=== PATIENT | female | born 1975 | race Caucasian/White ===

== ENCOUNTER 2016-07-12 10:28 | Emergency (ER) | payer OTHER ==
[2016-07-12 10:35] VITALS: RESP 18
--- NOTE | 2016-07-12 10:53 | EDPHY ---
H & P Time Seen by Provider: 07/12/16 10:50 HPI/ROS: CHIEF COMPLAINT: Bright red blood in stool. HISTORY OF PRESENT ILLNESS: The patient is a 41-year-old female with a history of IBS who presents because she had a bowel movement this morning that had bright red blood in it. She had a normal blood-free bowel movement when she first woke up. 45 minutes later she felt abdominal cramping and had an episode normal stool and blood in the toilet. She has a history of similar symptoms in 2012 and had a normal colonoscopy at that time. She was advised to stop running at that time. Since then she intermittently notices small amounts of blood on the toilet paper but never as much as today. REVIEW OF SYSTEMS: A complete 10-point review of systems was performed and is negative except for those items mentioned in the HPI. Past Medical/Surgical History: IBS. Social History: . Smoking Status: Never smoked Physical Exam: General Appearance: Alert, no distress Eyes: Pupils equal and round, no conjunctival pallor or injection ENT, Mouth: Mucous membranes moist Neck: Normal inspection Respiratory: Lungs are clear to auscultation Cardiovascular: Regular rate and rhythm Gastrointestinal: Abdomen is soft and non-tender Rectal: Anal fissure with no active bleeding. Stool is brown and mixed with BRB. Neurological: A&O, nonfocal, normal gait Skin: Warm and dry, no rash Extremities: Nontender, no pedal edema Psychiatric: Mood and affect normal Constitutional: Initial Vital Signs Temperature (C) 36.4 C 07/12/16 10:33 Heart Rate 86 07/12/16 10:33 Respiratory Rate 18 07/12/16 10:33 Blood Pressure 140/83 H 07/12/16 10:33 O2 Sat (%) 97 07/12/16 10:33 O2 Delivery Mode Room Air Allergies/Adverse Reactions: Penicillins Allergy (Verified 07/12/16 10:32) Home Medications: Medication Instructions Recorded Prozac 10 MG (*) 07/12/16 Zyrtec 07/12/16 Medical Decision Making ED Course/Re-evaluation: An IV was established and basic labs ordered. Stool sent to lab for screening and returned negative for blood. The red discoloration of her stool is possibly secondary to recent ingestion of beats. Fortunately there is no evidence of GI bleed. 1125: Reassessed patient. Discussed stool screen results with the patient. She is safe and stable for discharge. She has multiple ongoing GI issues and will follow up with GI. Differential Diagnosis: Differential diagnosis includes does not limited to hemorrhoids, lower GI bleed , severe anemia. - Data Points Laboratory Results: Laboratory Results 07/12/16 11:25 Departure - Departure Disposition: Home, Routine, Self-Care Clinical Impression: Red stool Condition: Good Instructions: Additional Information Additional Instructions: Follow up with gastroenterology next week for reevaluation. If you need a shredding machine knife changer in [place] you have been given the telephone number of SINDHU Ocasio. Return for any serious worsening of condition. Referrals: CHANG BISHOP [Primary Care Provider] - As per Instructions David Sylvester MD [Medical Doctor] - As per Instructions Report Scribed for: Lisseth Sam Report Scribed by: Fritz Dodson Date of Report: 07/12/16 Time of Report: 10:52 Physician Review and Approval Statement: 07/12/16 10:52 Portions of this note were transcribed by a medical office professional instructor. I personally performed a history, physical exam, medical decision making, and confirmed accuracy of information the transcribed note.
[2016-07-12 11:35] LABS: % IMMATURE GRANULYOCYTES 0.5 % (0.0-1.1); ABSOLUTE IMMATURE GRANULOCYTES 0.03 10^3/uL (0.00-0.10); ADD DIFF? NO; ADD MORPH? NO; ADD SCAN? NO; ATYPICAL LYMPHOCYTE FLAG 0 (0-99); FRAGMENT RBC FLAG 0 (0-99); HEMATOCRIT 41.4 % (38.0-47.0); HEMOGLOBIN 14.1 g/dL (12.6-16.3); LEFT SHIFT FLG 0 (0-99); LIPEMIA HEMOLYSIS FLAG 90 (0-99); MEAN CELL HEMOGLOBIN 32.5 pg (27.9-34.1); MEAN CELL HEMOGLOBIN CONCENTR. 34.1 g/dL (32.4-36.7); MEAN CELL VOLUME 95.4 fL (81.5-99.8); MEAN PLATELET VOLUME 9.8 fL (8.7-11.7); PLATELET CLUMPS FLAG 0 (0-99); PLATELET COUNT 299 10^3/uL (150-400); RED BLOOD CELL COUNT 4.34 10^6/uL (4.18-5.33); RED CELL DISTRIBUTION WIDTH 12.1 % (11.5-15.2)
[2016-07-12 11:46] VITALS: BP 104/79; PULSE 69; TEMP 98.4; O2SAT 96
== END 2016-07-12 11:45 | disposition home or self-care (01) ==
DX: R19.5 Other fecal abnormalities (principal)